=== PATIENT | female | born 1965 | race Caucasian/White ===

== ENCOUNTER 2016-08-25 17:54 | Emergency (ER) | payer OTHER ==
[~2016-08-25] VITALS: Ht 165.1 cm; Wt 105.0 kg
[~2016-08-25 17:54] MED LIST: CARV6 PO; FURO20 PO; OMEP20 PO
[2016-08-25] MEDS ORDERED: METO25 PO ×2 (17:58)
[2016-08-25] MEDS ORDERED: WARF5 PO (17:58)
[2016-08-25] MEDS ORDERED: ASPI81 PO (17:58)
[2016-08-25] MEDS ORDERED: POTA8CAP10 PO (17:58)
[2016-08-25 18:39] LABS: BASOPHILS % (AUTO) 1.8 % (0.0-2.0); EOSINOPHILS % (AUTO) 2.9 % (1.0-6.0); HEMATOCRIT 27.5 % (36-46); LYMPHOCYTES # (AUTO) 1.6 K/uL (1.0-4.8); LYMPHOCYTES % (AUTO) 28.2 % (22.0-44.0); MEAN CORPUSCULAR HEMOGLOBIN 24.9 pg (26.0-34.0); MEAN CORPUSCULAR HGB CONC 32.6 G/dL (31.0-37.0); MEAN CORPUSCULAR VOLUME 76 fL (80-100); MONOCYTES # (AUTO) 0.3 K/uL (0.1-1.0); MONOCYTES % (AUTO) 4.5 % (2.0-9.0); NEUTROPHILS # (AUTO) 3.6 K/uL (1.8-7.7); NEUTROPHILS % (AUTO) 62.6 % (40.0-70.0); PLATELET COUNT (AUTO) 349 K/uL (150-450); RED CELL DISTRIBUTION WIDTH 18.4 % (11.5-14.5); WHITE BLOOD COUNT (AUTO) 5.8 K/uL (4.5-11.0)
[2016-08-25 18:42] LABS: CALCIUM, TOTAL 8.6 mg/dL (8.8-10.5); CREATININE 1.75 mg/dL (0.60-1.30); POTASSIUM 4.1 mmol/L (3.5-5.1)
[2016-08-25 18:49] LABS: ALBUMIN 3.4 g/dL (3.4-5.0); BILIRUBIN,TOTAL 0.3 mg/dL (0.1-1.0); TOTAL PROTEIN, SERUM 8.5 g/dL (6.4-8.2)
[2016-08-25 18:50] LABS: INR 1.5 (0.9-1.1); PROTHROMBIN TIME 15.5 SEC (9.4-11.6)
[2016-08-25 18:55] LABS: RBC MORPHOLOGY COMMENT ABNORMAL RBC MORPH
[2016-08-25 22:11] VITALS: BP 133/67
== END 2016-08-25 22:31 | disposition home or self-care (01) ==
LOC: EMS 17:55
DX: D64.9 Anemia, unspecified (principal); K21.9 Gastro-esophageal reflux disease without esophagitis; I10 Essential (primary) hypertension; Z79.82 Long term (current) use of aspirin
CPT/HCPCS: 86850; 86870; 86880; 86900; 86901; 86999; 99284